=== PATIENT | female | born 1995 | race Caucasian/White ===

== ENCOUNTER 2017-03-21 13:00 | Emergency (ER) | payer MEDICAID ==
--- NOTE | 2017-03-21 14:33 | ER Document Report ---
ED Medical Screen (RME) - General Mode of Arrival: Ambulatory Information source: Patient TRAVEL OUTSIDE OF THE [place] IN LAST 30 DAYS: No - HPI Patient complains to provider of: vaginal bleeding <AMY CARBONE - Last Filed: 03/21/17 14:30> <MONICA HILL - Last Filed: 03/21/17 21:31> - General Chief Complaint: Vag Bleeding, +preg <12wks Stated Complaint: VAGINAL BLEEDING Time Seen by Provider: 03/21/17 14:22 Notes: Patient presents with complaints of vaginal bleeding at 10 weeks pregannt onset yesterday. Patient reports she had a transvaginal ultrasound at 7weeks but they did not find a heartbeat. Patient also complains of some vaginal burning and clots in the blood. Patient denies vaginal discharge, hematuria and dysuria. Patient is with one miscarriage. (AMY CARBONE) - Related Data Allergies/Adverse Reactions: Penicillins Allergy (Verified 03/21/17 13:16) Home Medications: Current Home Medications Vit No.78/Iron/FA [Prenatabs Fa Tablet] 1 each PO DAILY 03/21/17 [ History] Past Medical History - General Information source: Patient Last Menstrual Period: january 09, 2017 Pulmonary Medical History: Reports: Hx Asthma Renal/ Medical History: Denies: Hx Peritoneal Dialysis Past Surgical History: Reports: Hx Tonsillectomy - and adenoids <AMY CARBONE - Last Filed: 03/21/17 14:30> Review of Systems - Review of Systems Female Genitourinary: See HPI, Vaginal bleeding <AMY CARBONE - Last Filed: 03/21/17 14:30> Physical Exam - General General appearance: Appears well, Alert In distress: None - Abdominal Inspection: Obese <AMY CARBONE - Last Filed: 03/21/17 14:30> Course - Laboratory Result Diagrams: 03/21/17 14:55 03/21/17 14:55 <MONICA HILL - Last Filed: 03/21/17 21:31> - Vital Signs Vital signs: Temp Pulse Resp BP Pulse Ox 99.2 F 89 17 119/70 100 03/21/17 13:17 03/21/17 18:28 03/21/17 18:28 03/21/17 18:28 03/21/17 18:28 - Laboratory Laboratory results interpreted by me: 03/21/17 03/21/17 14:55 14:55 Glucose 73 L Beta HCG, Quant 2465.00 H Urine Blood SMALL H Urine Ascorbic Acid 40 H Doctor's Discharge <AMY CARBONE - Last Filed: 03/21/17 14:30> <MONICA HILL - Last Filed: 03/21/17 21:31> - Discharge Clinical Impression: Incomplete miscarriage, Elevated blood pressure reading Condition: Stable Disposition: HOME, SELF-CARE Instructions: Miscarriage Impending (OM) Additional Instructions: *You have been evaluated for impending miscarriage *Take tylenol as indicated for pain *Follow up with Dr Hennessy tomorrow morning. Call the office at [phone] *Return to ED for worsening condition, changes, needs, increased bleeding, increased pain Monitor your blood pressure. Your blood pressure was elevated today. This may be because you were anxious, in pain or because you need medication. It is important to follow up with your primary care provider for full evaluation. Forms: Elevated Blood Pressure Referrals: OPHELIA BARBA DO [SHANAE DOSS] - 03/22/17 8:00 am (call tomorrow at 0800) Scribe Documentation - Scribe Written by Scribe:: ivy Moy, 03/21/17, [id number] acting as scribe for :: Alberto <AMY CARBONE - Last Filed: 03/21/17 14:30>
[2017-03-21 15:17] LABS: ABSOLUTE EOSINOPHILS # (AUTO) 0.1 10^3/uL (0.0-0.6); ABSOLUTE LYMPHOCYTES (AUTO) 2.3 10^3/uL (0.5-4.7); ABSOLUTE MONOCYTES (AUTO) 0.5 10^3/uL (0.1-1.4); ABSOLUTE NEUT (AUTO) 4.4 10^3/uL (1.7-8.2); BASOPHILS % (AUTO) 0.4 % (0-2); EOSINOPHILS % (AUTO) 1.1 % (0-6); HEMATOCRIT 41.7 % (36.0-47.0); HEMOGLOBIN 13.7 g/dL (12.0-15.5); HGB HCT DIFFERENCE -0.6; LYMPHOCYTES % (AUTO) 31.9 % (13-45); MEAN CORPUSCULAR HEMOGLOBIN 28.2 pg (27.0-33.4); MEAN CORPUSCULAR HGB CONC 32.8 g/dL (32.0-36.0); MEAN CORPUSCULAR VOLUME 86 fl (80-97); MONOCYTES % (AUTO) 6.2 % (3-13); RED BLOOD COUNT 4.86 10^6/uL (3.72-5.28); SEGMENTED NEUTROPHILS % (AUTO) 60.4 % (42-78); WHITE BLOOD COUNT 7.3 10^3/uL (4.0-10.5)
[2017-03-21 15:23] LABS: APPEARANCE,URINE SLIGHTLY-CLOUDY; BILIRUBIN,URINE NEGATIVE (NEGATIVE); GLUCOSE, URINE NEGATIVE (NEGATIVE); KETONES,URINE NEGATIVE (NEGATIVE); LEUKOCYTE ESTERASE,URINE NEGATIVE (NEGATIVE); NITRITE,URINE NEGATIVE (NEGATIVE); PROTEIN,URINE NEGATIVE (NEGATIVE); URINE SPECIFIC GRAVITY 1.027; UROBILINOGEN,URINE NEGATIVE mg/dL (<2.0)
[2017-03-21 15:37] LABS: ALANINE AMINOTRANSFERASE 33 U/L (5-35); ALBUMIN 4.5 g/dL (3.7-5.6); ALKALINE PHOSPHATASE 62 U/L (50-135); ANION GAP 17 (5-19); ASPARTATE AMINO TRANSFERASE 24 U/L (5-30); BILIRUBIN,DIRECT 0.3 mg/dL (0.0-0.4); BILIRUBIN,TOTAL 0.7 mg/dL (0.2-1.3); BLOOD UREA NITROGEN 12 mg/dL (7-20); CALCIUM 9.9 mg/dL (8.4-10.2); CARBON DIOXIDE 22 mmol/L (22-30); CHLORIDE 103 mmol/L (98-107); CREATININE RESULT 0.64 mg/dL (0.52-1.25); GLUCOSE 73 mg/dL (75-110); POTASSIUM 3.7 mmol/L (3.6-5.0); TOTAL PROTEIN 7.7 g/dL (6.3-8.2)
--- NOTE | 2017-03-21 17:36 | ER Document Report ---
ED General - General Mode of Arrival: Ambulatory TRAVEL OUTSIDE OF THE [place] IN LAST 30 DAYS: No - HPI Onset: Yesterday Onset/Duration: Sudden Quality of pain: No pain Pain Level: Denies - no pain now Associated symptoms: None Exacerbated by: Denies Relieved by: Denies Similar symptoms previously: Yes Recently seen / treated by doctor: Yes <NEEMA SAMPSON - Last Filed: 03/21/17 20:46> <MONICA HILL - Last Filed: 03/21/17 21:52> - General Chief Complaint: Vag Bleeding, +preg <12wks Stated Complaint: VAGINAL BLEEDING Time Seen by Provider: 03/21/17 14:22 Notes: Patient presents emergency department with reports of possible miscarriage, vaginal bleeding and approximately 10 weeks . Patient reports she was evaluated at [facility] for the same symptoms a few weeks ago when she was 7 weeks. She was informed that the baby was and she needed to have a D&C. Patient never followed up with a primary care provider OB or the health department. She reports she just got her Medicaid. She is here today because she has some vaginal bleeding blood clots. She reports the bleeding has tapered off. She denies abdominal pain at this time. Denies f/n/v/d, denies trauma. lmp january 09, , one miscarriage . Patient also complains of some vaginal burning and clots in the blood. Patient denies vaginal discharge, hematuria and dysuria. (NEEMA SAMPSON) - Related Data Allergies/Adverse Reactions: Penicillins Allergy (Verified 03/21/17 13:16) Home Medications: Current Home Medications Vit No.78/Iron/FA [Prenatabs Fa Tablet] 1 each PO DAILY 03/21/17 [ History] Past Medical History - General Information source: Patient Last Menstrual Period: january 09, 2017 - Social History Smoking Status: Current Every Day Smoker Cigarette use (# per day): Yes Frequency of alcohol use: None Drug Abuse: None Lives with: Family Family History: Reviewed & Not Pertinent Patient has suicidal ideation: No Patient has homicidal ideation: No Pulmonary Medical History: Reports: Hx Asthma Renal/ Medical History: Denies: Hx Peritoneal Dialysis Past Surgical History: Reports: Hx Tonsillectomy - and adenoids <NEEMA SAMPSON - Last Filed: 03/21/17 20:46> Review of Systems <NEEMA SAMPSON - Last Filed: 03/21/17 20:46> <MONICA HILL - Last Filed: 03/21/17 21:52> - Review of Systems Notes: Review HPI for review of systems., All other systems negative (NEEMA SAMPSON) Physical Exam <NEEMA SAMPSON - Last Filed: 03/21/17 20:46> <MONICA HILL - Last Filed: 03/21/17 21:52> - Vital signs Vitals: Temp Pulse Resp BP Pulse Ox 99.2 F 88 20 142/77 H 98 03/21/17 13:17 03/21/17 13:17 03/21/17 13:17 03/21/17 13:17 03/21/17 13:17 - Notes Notes: PHYSICAL EXAMINATION: GENERAL: Well-appearing and in no acute distress laying on the stretcher laughing HEAD: Atraumatic, normocephalic. EYES: Pupils equal round extraocular movements intact, sclera anicteric, conjunctiva are normal. ENT: nares patent, Moist mucous membranes. NECK: Normal range of motion, supple without lymphadenopathy LUNGS: CTAB and equal. No wheezes rales or rhonchi. HEART: Regular rate and rhythm without murmurs ABDOMEN: Soft, no tenderness. No guarding, no rebound EXTREMITIES: Normal range of motion, no pitting edema. No cyanosis. NEUROLOGICAL: Cranial nerves grossly intact. Normal sensory/motor PSYCH: Normal mood, normal affect. SKIN: Warm, Dry, normal turgor, no rashes or lesions noted (NEEMA SAMPSON) Course - Laboratory Result Diagrams: 03/21/17 14:55 03/21/17 14:55 - Diagnostic Test Radiology reviewed: Image reviewed, Reports reviewed <NEEMA SAMPSON - Last Filed: 03/21/17 20:46> - Laboratory Result Diagrams: 03/21/17 14:55 03/21/17 14:55 <MONICA HILL - Last Filed: 03/21/17 21:52> - Re-evaluation Re-evalutation: 03/21/17 17:30 dr maharaj radiologist contacted for clarification of demise, confirmed, pt updated on demise 03/21/17 17:35 dr hennessy consulted via hospital carousel operator, he was updated on patient's history ultrasound report. He reports patient can follow-up with him in the office tomorrow. Patient and her family members were instructed on the importance of follow-up tomorrow with Dr. Hennessy. There are provider the with his office number. Patient verbalized understanding to all instructions. Labs unremarkable positive no need for mammogram (NEEMA SAMPSON) 03/21/17 21:45 I personally saw and examined this patient. Patient had vaginal bleeding for a few days. No products of conception noted. No unstable vital signs, abdomen is benign. agree with KATHLEEN North's plan. (MONICA HILL) - Vital Signs Vital signs: Temp Pulse Resp BP Pulse Ox 99.2 F 89 17 119/70 100 03/21/17 13:17 03/21/17 18:28 03/21/17 18:28 03/21/17 18:28 03/21/17 18:28 - Laboratory Laboratory results interpreted by me: 03/21/17 03/21/17 14:55 14:55 Glucose 73 L Beta HCG, Quant 2465.00 H Urine Blood SMALL H Urine Ascorbic Acid 40 H Discharge <NEEMA SAMPSON - Last Filed: 03/21/17 20:46> <MONICA HILL - Last Filed: 03/21/17 21:52> - Discharge Clinical Impression: Incomplete miscarriage, Elevated blood pressure reading Condition: Stable Disposition: HOME, SELF-CARE Instructions: Miscarriage Impending (OM) Additional Instructions: *You have been evaluated for impending miscarriage *Take tylenol as indicated for pain *Follow up with Dr Hennessy tomorrow morning. Call the office at [phone] *Return to ED for worsening condition, changes, needs, increased bleeding, increased pain Monitor your blood pressure. Your blood pressure was elevated today. This may be because you were anxious, in pain or because you need medication. It is important to follow up with your primary care provider for full evaluation. Forms: Elevated Blood Pressure Referrals: OPHEILA BARBA DO [SHANAE DOSS] - 03/22/17 8:00 am (call tomorrow at 0800)
[2017-03-21 18:30] VITALS: BP 119/70
== END 2017-03-21 17:49 | disposition home or self-care (01) ==
LOC: ER 13:00
DX: O03.4 Incomplete spontaneous abortion without complication (principal); R03.0 Elevated blood-pressure reading, without diagnosis of hypertension; O99.331 Smoking (tobacco) complicating pregnancy, first trimester; F17.210 Nicotine dependence, cigarettes, uncomplicated; Z3A.10 10 weeks gestation of pregnancy; Z88.0 Allergy status to penicillin
CPT/HCPCS: 36415; 76817; 80053; 81001; 84702; 85025; 86900; 86901; 99284